=== PATIENT | male | born 1985 | race Caucasian/White ===

== ENCOUNTER → 2023-09-15 | Outpatient (CLI) | payer BC ==
[~2023-09-15] VITALS: Ht 185.4 cm; Wt 109.6 kg
[~2023-09-15] MED LIST: NO HOME MEDICATIONS; SYNTHROID0.05 MG/TA PO
[2023-09-15 08:28] VITALS: BP 124/77; PULSE 81; TEMP 97.5
[2023-09-15 09:40] VITALS: BP 130/89; PULSE 67
== END ==
LOC: COL.RAD 07:45
DX: E04.1 Nontoxic single thyroid nodule (principal)